=== PATIENT | male | born 1990 | race Caucasian/White ===

== ENCOUNTER 2018-12-04 07:15 | Emergency (ER) | payer SELFPAY, OTHER ==
[2018-12-04] MEDS: KETOROLAC 30 MG INJ IM (07:43)
[2018-12-04] MEDS: SOD CHLORIDE 0.9% 1,000 ML IV (08:36)
== END 2018-12-04 10:40 | disposition home or self-care (01) ==
LOC: E/R 07:15
DX: F11.920 Opioid use, unspecified with intoxication, uncomplicated (principal); M25.311 Other instability, right shoulder; R40.2142 Coma scale, eyes open, spontaneous, at arrival to emergency department; R40.2252 Coma scale, best verbal response, oriented, at arrival to emergency department; R40.2362 Coma scale, best motor response, obeys commands, at arrival to emergency department; F17.210 Nicotine dependence, cigarettes, uncomplicated
CPT/HCPCS: 29105; 71045; 73030-RT; 73130-LT; 96372; 99284-25